=== PATIENT | female | born 2000 | race Caucasian/White ===

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

== ENCOUNTER 2022-09-20 06:35 | Emergency (ER) | payer BC ==
[~2022-09-20] VITALS: Ht 154.9 cm; Wt 56.7 kg
[2022-09-20 06:49] VITALS: PULSE 103; RESP 19; TEMP 97.9; O2SAT 98
--- NOTE | 2022-09-20 07:00 | NUR ---
Patient to ER bed 5 to gown for evaluation. Side rails up. Report given to CIRILO ADAM(REG).
[2022-09-20] MEDS ORDERED: DEXAMETHASONE SOD PHOSPHATE 4 MG/ML VIAL IM ONE (07:15)
[2022-09-20] MEDS ORDERED: DIPHENHYDRAMINE HCL 25 MG CAPSULE PO ONE (07:15)
[2022-09-20] MEDS ORDERED: FAMOTIDINE 20 MG TABLET PO ONE (07:15)
[2022-09-20] MEDS ORDERED: DIPHENHYDRAMINE HCL 12.5 MG/5 ML UDC PO ONE (07:30)
--- NOTE | 2022-09-20 07:47 | NUR ---
Pt AXO, pmh autism, non verbal. Parents at bedside report hives that began around 0600 this morning. No s/s distress, pt sitting with parents at either side. Refused BP cuff. PT stable.
--- NOTE | 2022-09-20 07:55 | NUR ---
Dr Harrison evaluating patient at bedside
--- NOTE | 2022-09-20 08:32 | NUR ---
Patient and pt's mother given written and verbal discharge instructions and verbalizes understanding. ER MD discussed with patient and pt's mother the results and treatment provided. Patient in stable condition. ID arm band removed. No Rx given. Patient and pt's mother educated on pain management and to follow up with PMD. Pain Scale 0/10 . Opportunity for questions provided and answered. Medication side effect fact sheet provided.
[2022-09-20 08:34] VITALS: PULSE 103; RESP 19; TEMP 97.9; O2SAT 98
== END 2022-09-20 08:32 | disposition home or self-care (01) ==
LOC: SED 06:35
DX: L50.9 Urticaria, unspecified (principal); L29.9 Pruritus, unspecified; Z79.899 Other long term (current) drug therapy
CPT/HCPCS: 99283; 96372; J1100